=== PATIENT | male | born 1985 | race Caucasian/White ===

== ENCOUNTER 2019-04-25 18:31 | Emergency (ER) | payer OTHER ==
[~2019-04-25] VITALS: Ht 170.2 cm; Wt 61.2 kg
--- NOTE | 2019-04-25 18:35 | NUR ---
33 Y/M BIBA FROM HOME FOR HYPOGLYCEMIA. PER EMS GLUCOSE WAS 22. PT WAS GIVEN D5. UPON ACCUCHECK 218 GLUCOSE. PT A &O X 4, PT APPEARS LETHARGIC, DENIES ANY PAIN. PT REPORTS HE WAS WEARING HIS INSULIN PUMP ALL DAY AND IT MAY HAVE GIVEN TOO MUCH INSULIN. RR EVEN AND UNLABORED, SKIN DRY WARM TO TOUCH, ABD SOFT. BURN TO UMBILICUS, AND FOOT ULCERS TO L FOOT. HX- NEUROPATHY, IBS, GLAUCOMA
--- NOTE | 2019-04-25 18:35 | NUR ---
PT PLACED ON 3 LEAD ECG AND PULSE OX.
--- NOTE | 2019-04-25 18:35 | NUR ---
BIBA TO BED 3 VIA [facility].
[2019-04-25 18:40] VITALS: BP 92/59
[2019-04-25] MEDS ORDERED: NACL 0.9% 1,000 ML IV ONE (18:55)
--- NOTE | 2019-04-25 19:02 | NUR ---
XR AT BEDSIDE.
--- NOTE | 2019-04-25 19:12 | NUR ---
ACCUCHECK AT BEDSIDE OF 208
--- NOTE | 2019-04-25 19:17 | NUR ---
LAB AT BEDSIDE.
--- NOTE | 2019-04-25 19:30 | NUR ---
URINE SAMPLE ORDERED; GAVE PT URINAL AND INSTRUCTED TO TRY TO URINATE. VITALLY STABLE. REPORTS FEELING FATIGUE. WILL CONTINUE TO MONITOR.
--- NOTE | 2019-04-25 19:30 | NUR ---
STARTED NS MAINTENANCE IVF.
--- NOTE | 2019-04-25 19:42 | NUR ---
PT WAS ABLE TO URINATE; COLLECTED SAMPLE AND SENT TO LAB.
[2019-04-25 19:50] LABS: BASOPHILS # (AUTO) 0.1 K/uL (0.00-0.22); BASOPHILS % (AUTO) 0.7 % (0.0-2.0); EOSINOPHILS # (AUTO) 0.1 K/uL (0-0.4); EOSINOPHILS % (AUTO) 1.2 % (0.0-4.0); HEMATOCRIT 35.9 % (36-52); HEMOGLOBIN 11.4 g/dL (12.0-18.0); LYMPHOCYTES # (AUTO) 0.9 K/uL (2.0-11.5); LYMPHOCYTES % (AUTO) 8.5 % (20.5-51.1); MEAN CORPUSCULAR HEMOGLOBIN 27 pg (27-31); MEAN CORPUSCULAR HGB CONC 32 g/dL (33-37); MEAN CORPUSCULAR VOLUME 84.5 fL (80-94); MONOCYTES # (AUTO) 0.5 K/uL (0.8-1.0); MONOCYTES % (AUTO) 4.8 % (1.7-9.3); NEUTROPHILS # (AUTO) 9.3 K/uL (1.8-7.7); NEUTROPHILS % (AUTO) 84.8 % (42.2-75.2); PLATELET COUNT (AUTO) 146 K/uL (140-450); RED BLOOD CELL COUNT(AUTO) 4.25 MIL/uL (4.20-6.10); RED CELL DISTRIBUTION WIDTH 15.2 % (11.6-13.7)
--- NOTE | 2019-04-25 20:15 | NUR ---
POC BG 276.
[2019-04-25 20:33] LABS: ALBUMIN 3.2 g/dL (3.4-5.0); ANION GAP 11.6 (8-16); CARBON DIOXIDE 23.4 mmol/L (21-32); CREATININE 1.2 mg/dL (0.6-1.3); TOTAL BILIRUBIN 0.6 mg/dL (0.0-1.0)
[2019-04-25 20:34] LABS: BARBITURATE, URINE NEGATIVE ng/ml (NEG <=200); BENZODIAZEPINE, URINE NEGATIVE ng/mL (NEG <=200); CANNABINOID, URINE NEGATIVE ng/mL (NEG <=50); COCAINE, URINE NEGATIVE ng/mL (NEG <=300); OPIATE, URINE NEGATIVE ng/mL (NEG <=2000); PHENCYCLIDINE SCREEN,URINE NEGATIVE ng/mL (NEG <=25)
[2019-04-25 20:37] LABS: SALICYLATE < 2.8 mg/dL (2.8-20.0)
[2019-04-25 20:38] LABS: CREATINE KINASE MB 1.9 ng/mL (0-3.6)
--- NOTE | 2019-04-25 20:47 | NUR ---
PT AMBULATED TO BATHROOM, STEADY GAIT.
[2019-04-25 20:52] VITALS: BP 90/59
--- NOTE | 2019-04-25 20:52 | NUR ---
Patient discharged with v/s stable. Written and verbal after care instructions given and explained. Patient verbalized understanding. Wheel Chair Assisted with to car. All questions addressed prior to discharge. Advised to follow up with PMD. DISCHARGE INSTRUCTIONS PROVIDED BY DR LINARES.
== END 2019-04-25 20:50 | disposition home or self-care (01) ==
LOC: MED 18:31
DX: E16.2 Hypoglycemia, unspecified (principal); E11.40 Type 2 diabetes mellitus with diabetic neuropathy, unspecified
CPT/HCPCS: 36415; 71045; 80053; 80305; 82550; 82553; 82948; 84484; 85025; 93005; 96360; 99285; G0480; G0482; J7030

== ENCOUNTER 2021-03-23 08:53 | Emergency (ER) | payer OTHER ==
[~2021-03-23] VITALS: Ht 165.1 cm; Wt 54.4 kg
[2021-03-23 08:58] VITALS: BP 111/70
--- NOTE | 2021-03-23 09:04 | NUR ---
pt ambulated with assistance from mother to bed 12
[2021-03-23] MEDS ORDERED: KETOROLAC 60 MG/2 ML VIAL IM ONE (09:20)
--- NOTE | 2021-03-23 09:45 | NUR ---
35 y/o Male with right 4th digit pain this morning. Pt denies recent trauma. Pt with chronic wound to finger. Pt describes sharp intermittent 10/10 pain in right 4th digit without radiation. Denies fever, chills, nausea or vomiting. Pt denies chest pain or SOB. Pt reports numbness, but no tingling. Pt sees a real estate management specialist. PmHx: IBS, Blind in both eyes. Allergies: Denies
[2021-03-23] MEDS ORDERED: ACET-8386 PO (09:52)
[2021-03-23] MEDS ORDERED: IBUP-2213 PO (09:52)
--- NOTE | 2021-03-23 10:40 | NUR ---
Pt right 4th finger placed in splint per MD Jean Baptiste order at this time. Pt tolerated procedure well.
--- NOTE | 2021-03-23 10:45 | NUR ---
Patient discharged with v/s stable. Written and verbal after care instructions ABOUT FINGER FRACTURE given and explained. Patient alert, oriented and verbalized understanding of instructions. AMBULATORY with steady gait. All questions addressed prior to discharge. ID band removed. Patient advised to follow up with PMD. Rx of NORCO 5-325MG AND MOTRIN given. Patient educated on indication of medication including possible reaction and side effects. Opportunity to ask questions provided and answered.
== END 2021-03-23 10:45 | disposition home or self-care (01) ==
LOC: MED 08:53
DX: S62.614A Displaced fracture of proximal phalanx of right ring finger, initial encounter for closed fracture (principal); E11.9 Type 2 diabetes mellitus without complications; X58.XXXA Exposure to other specified factors, initial encounter; Y93.89 Activity, other specified; Y92.89 Other specified places as the place of occurrence of the external cause; Y99.8 Other external cause status
CPT/HCPCS: 29130; 73140; 96372; 99283; J1885

== ENCOUNTER 2021-08-15 15:13 | Emergency (ER) | payer OTHER ==
[~2021-08-15] VITALS: Ht 170.2 cm; Wt 54.2 kg
[~2021-08-15 15:13] MED LIST: ACET-8386 PO; IBUP-2213 PO
[2021-08-15 16:03] VITALS: BP 102/60
--- NOTE | 2021-08-15 16:07 | NUR ---
Cosme ibanez in [facility] - 08/15/21 at 1619 by LILLIAN ARGENIS AT BEDSIDE
--- NOTE | 2021-08-15 16:14 | NUR ---
Note undone in EDM - 08/15/21 at 1619 by MNURPM 36YR OLD FEMALE BIB SELF C/O LEFT FOOT/ANKLE PAIN AND SWELLING X4DAYS. PAIN LEVEL 8/10. SWELLING AND SOME BRUISING TO AREA. PT STATES WAS SCRATCHING SKIN WHEN EZEMA HAD A BREAK OUT AND BROKE THE SKIN. SINCE THEN FOOT HAS BEEN GETTING SWOLLEN AND PAINFUL. DENIES ANY TRAUMA OR INJURY. GOOD SENSATION AND CMS TO EXTREMITY. PT A&OX4. LEG IS SIGHTLY ELEVATED IN BED. SIDE RAILS UP X2 BED AT LOWEST POSITION. NKDA NO MED HX
[2021-08-15] MEDS ORDERED: KETOROLAC 60 MG/2 ML VIAL IM ONE (16:20)
--- NOTE | 2021-08-15 16:28 | NUR ---
XRAY AT BEDSIDE
--- NOTE | 2021-08-15 17:11 | NUR ---
36YR OLD MALE BIB FAMILY C/0 RIGHT FOOT PAIN X1 DAY. SKIN AVULSIONS AND PAIN TO RIGHT FOOT S/P INJURY. PT IS BLIND HIT FOOT AGAINST DOOR FRAME WHILE WALKING TO BATHROOM. PAIN 8/. NO SWELLING NOTED. PT IN BED SIDE RAILS UP X1. FAMILY AT BEDSIDE. NKDA BLINDNESS POTS SYNDROME DM NEUROPATHY
[2021-08-15] MEDS ORDERED: NAPR-1704 PO (17:14)
[2021-08-15 17:27] VITALS: BP 102/60
--- NOTE | 2021-08-15 18:05 | NUR ---
The patient's care was reviewed and supervised by Tomasa Barton RN.
== END 2021-08-15 17:27 | disposition home or self-care (01) ==
LOC: MED 15:13
DX: S91.301A Unspecified open wound, right foot, initial encounter (principal); E10.9 Type 1 diabetes mellitus without complications; Z79.1 Long term (current) use of non-steroidal anti-inflammatories (NSAID); Z79.891 Long term (current) use of opiate analgesic; W22.8XXA Striking against or struck by other objects, initial encounter; Y92.89 Other specified places as the place of occurrence of the external cause; Y93.89 Activity, other specified; Y99.8 Other external cause status
CPT/HCPCS: 73630; 96372; 99283; J1885